=== PATIENT | female | born 1960 | race Caucasian/White ===

== ENCOUNTER 2021-01-27 00:59 | Emergency (ER) | payer OTHER, SELFPAY ==
[2021-01-27] VITALS (21 sets, daily range): BP systolic 115–132; BP diastolic 71–102; PULSE 81–96; RESP 20–27; TEMP 36.4–36.9; O2SAT 91–95
--- NOTE | ~2021-01-27 | XR_ITS ---
XR chest 2V DATE: 01/27/2021 01:25 INDICATION: Shortness of breath, wheezing, cough TECHNIQUE: PA and lateral views COMPARISON: None FINDINGS: There is suggestion of bilateral perihilar and lower lung infiltrates and/or atelectasis. Mild elevation of the right leaf of the diaphragm. Heart size appears normal. Is aortic arch calcification. Probable moderate hiatal hernia. Diffuse osteopenia. IMPRESSION: Probable bilateral perihilar and lower lung zone infiltrates and/atelectasis; continued r adiographic follow-up is recommended Reviewed, dictated and finalized at location A. IMPRESSION: Probable bilateral perihilar and lower lung zone infiltrates and/at electasis; continued radiographic follow-up is recommended
--- NOTE | 2021-01-27 01:06 | ECG_ITS ---
Measurements Intervals [place] Rate: 93 P: 1 LA: 146 QRS: -14 QRSD: 89 T: 1 QT: 328 QTc: 409 Interpretive Statements SINUS RHYTHM LOW QRS VOLTAGE IN PRECORDIAL LEADS BORDERLINE R WAVE PROGRESSION, ANTERIOR LEADS INFERIOR INFARCT, AGE INDETERMINATE BASELINE WANDER- II, III, AVR, AVF, V1-V3 ABNORMAL ECG Electronically Signed On 01-27-2021 6:44:32 CDT by Miguel Angel Hauser D.O.
[2021-01-27 01:35] LABS: Basophils Percent Auto 0.4 % (0.2-1.2); Eosinophils Absolute Auto 0.1 K/mm3 (0-0.3); Eosinophils Percent Auto 0.7 % (0-4.4); Hematocrit 39.4 % (37.0-47.0); Hemoglobin 12.4 g/dL (12.0-15.0); Immature Granulocyte Absolute 0.02 K/mm3 (0.00-0.031); Immature Granulocyte Percent A 0.2 % (0-0.5); Lymphocytes Absolute Auto 1.57 K/mm3 (0.9-3.2); Mean Corpuscular HGB Conc 31.5 g/dl (32-36); Mean Corpuscular Hemoglobin 27.2 pg (26-34); Mean Corpuscular Volume 86.4 fl (80-100); Mean Platelet Volume 9.4 fl (7.4-10.4); Monocytes Absolute Auto 0.5 K/mm3 (0.1-0.6); Monocytes Percent Auto 5.4 % (2.6-8.5); Neutrophils Absolute Auto 6.2 K/mm3 (1.3-6.7); Neutrophils Percent Auto 74.3 % (45.5-73.1); Platelet Count Result 224 k/mm3 (150-375); Red Blood Count 4.56 M/mm3 (4.2-5.4); Red Cell Distribution Width 17.2 % (11.5-14.5); White Blood Count 8.3 K/mm3 (4.5-10.0)
[2021-01-27 01:38] LABS: Anion Gap 11 mmol/L (8-16); Blood Urea Nitrogen 19 mg/dL (7-17); Calcium 9.1 mg/dL (8.4-10.2); Carbon Dioxide 24 mmol/L (22-30); Chloride 104 mmol/L (98-107); Estimated Glomerular Filt Rate 50; Glucose 135 mg/dL (65-110); Potassium 4.1 mmol/L (3.4-5.0); Sodium 139 mmol/L (137-145)
--- NOTE | 2021-01-27 03:36 | ED.SOB ---
HPI - SOB/Dyspnea General Chief Complaint: Shortness of Breath/Dyspnea Stated Complaint: SOB Time Seen by Provider: 01/27/21 02:59 Source: patient and RN notes reviewed Mode of arrival: EMS Limitations: no limitations History of Present Illness HPI Narrative: This is a 60 year old female with history of asthma and DM who presents for evaluation shortness of breath and wheezing. Her symptoms started on Thursday with coughing and wheezing. She has been using her albuterol inhaler. Her inhaler was helping with her shortness of breath until tonight. She states she felt like she could not breath so she called EMS. She was given an albuterol nebulizer in route. She feels better but she still feels short of breath. She denies fever, chest pain, runny nose. 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 Related Data Allergies Allergy/AdvReac Type Severity Reaction Status Date / Time amoxicillin Allergy Unknown Verified 08/22/10 14:45 cromolyn Allergy Unknown Verified 08/22/10 14:45 morphine Allergy Unknown Verified 05/22/15 13:20 Sulfa (Sulfonamide Allergy Unknown Verified 05/22/15 13:21 Antibiotics) Review of Systems Review of Systems: All systems reviewed & are unremarkable except as noted in HPI and below PMFSH Past Medical History Medical History (Updated 01/27/21 @ 05:24 by Belkis Ojeda MD) Asthma Diabetes mellitus Hypertension Surgical History Surgical History (Updated 01/27/21 @ 05:21 by Belkis Ojeda MD) Hx of cholecystectomy Family History Family History (Updated 02/01/16 @ 23:19 by DOCTOR UNKNOWN) Mother Hypertension Family history of diabetes mellitus in first degree relative Father Acute myocardial infarction Other Diabetes mellitus Family history of coronary artery disease Social History Social History Smoking status: Never smoker Alcohol intake: never Exam Const: General: no acute distress and alert Nutritional Appearance: obese Orientation/consciousness: patient oriented x3 Eyes: EOM: EOMs intact bilaterally Resp: Effort & Inspection: normal respiratory effort, not labored, no retractions and not tachypneic Auscultation: wheezes expiratory wheezes and posterior Cardio: Rate: regular rate Rhythm: regular rhythm Heart sounds: no murmurs GI: GI Palp: Yes Soft to palpation, No Tenderness to palpation present (GI) and No Guarding due to palpation present (GI) Auscultation: normal bowel sounds Neuro: General: patient oriented x3 and moves all extremities Course Reevaluation(s) Reevaluation #1: PAtient states she feels better. Her lungs are clear now. She was able to ambulate without sob and maintain oxygen saturation 94% . I discussed discharge plan. she feels comfortable with discharge. She will be swabbed for covid. She does report recent contact with family with covid Date: 01/27/21 Time: 05:22 Vital Signs Vital signs: Vital Signs Temperature 97.5 F L 01/27/21 00:59 Pulse Rate 96 01/27/21 00:59 Respiratory Rate 24 H 01/27/21 00:59 Blood Pressure 127/76 01/27/21 00:59 Pulse Oximetry 94 01/27/21 00:59 Temperature 98.4 F 01/27/21 05:36 Pulse Rate 81 01/27/21 05:36 Respiratory Rate 20 01/27/21 05:36 Blood Pressure 115/71 01/27/21 05:36 Pulse Oximetry 94 01/27/21 05:36 MDM - SOB/Dyspnea Lab Data Attestation: I reviewed the patient's lab results. Result diagrams: 01/27/21 01:17 01/27/21 01:17 Labs: Lab Results 01/27/21 01/27/21 01/27/21 Range/Units 01:17 01:17 04:05 WBC 8.3 (4.5-10.0) K/mm3 RBC 4.56 (4.2-5.4) M/mm3 Hgb 12.4 (12.0-15.0) g/dL Hct 39.4 (37.0-47.0) % MCV 86.4 (80-100) fl MCH 27.2 (26-34) pg MCHC 31.5 L (32-36) g/dl RDW 17.2 H (11.5-14.5) % Plt Count 224 (150-375) k/mm3 MPV 9.4 (7.4-10.4) fl Immature Gran % (Auto) 0.2 (0-0.5) % Neut % (Auto) 74.3 H (45.5-73.1) % Lymph % (Au
[2021-01-27] MEDS: predniSONE 20 MG TABLET 60 MG PO (03:54)
[2021-01-27] MEDS: IPRATROPIUM BR 0.02% INH SOLN 0.5 MG/2.5 ML VIAL INHALATION (04:07)
[2021-01-27] MEDS: ALBUTEROL SULFATE NEB 2.5 MG/0.5 ML INH 5 MG INHALATION (04:07)
[2021-01-27 04:19] LABS: Alveolar/Arterial O2 Gradient 38.2 mmHg; Base Excess ABG 0.2 mEq/l (+/-2.0); Carboxyhemoglobin 0.7 % THb (0-2.0); Fractional Inspired Oxygen 21 %; HCO3 ABG 24.5 mEq/l (22.0-26.0); Methemoglobin ABG 0.4 %THb (0-1.5); Oxygen Content ABG 17.7 %vol (16.0-22.0); Oxygen Saturation ABG 93.3 % (95.0-100.0); Oxyhemoglobin 92.4 % THb (90.0-100.0); PCO2 ABG 38.6 mmHg (35.0-45.0); PO2 ABG 65.3 mmHg (80.0-100.0); PO2 FiO2 Ratio Arterial Blood 3.11 %; Reduced Hemoglobin 6.5 %THb (0-5.0); Total Hemoglobin 13.6 g/dL (12.0-18.0); pH ABG 7.421 (7.350-7.450)
[2021-01-27 04:21] LABS: Modified Allen's Test Pass; Site Drawn RIGHT RADIAL
[2021-01-27] MEDS: AZITHROMYCIN 250 MG TABLET 500 MG PO (05:30)
[2021-01-29 15:38] LABS: SARS-CoV-2 RNA PCR Positive
== END 2021-01-27 05:49 | disposition home or self-care (01) ==
PROVIDERS: Emergency Provider General Practice
DX: U07.1 COVID-19 (principal); J45.901 Unspecified asthma with (acute) exacerbation; E11.9 Type 2 diabetes mellitus without complications; I10 Essential (primary) hypertension; R94.31 Abnormal electrocardiogram [ECG] [EKG]; R91.8 Other nonspecific abnormal finding of lung field
CPT/HCPCS: 36415; 36600; 71046; 80048; 82375; 82805; 83050; 85025; 93005; 99284; A9270; C9803; J7512; U0003; U0005

== ENCOUNTER 2023-09-15 05:18 | Emergency (ER) | payer OTHER, SELFPAY ==
--- NOTE | ~2023-09-15 | CT_ITS ---
EXAMINATION: CTA chest PE protocol DATE: 09/15/2023 07:11 INDICATION: Shortness of breath TECHNIQUE: Computed tomography (CT) pulmonary angiogram of the chest was performed with 100 mL Omnipa que-350 intravenous contrast. Additional 3D reconstructions utilizing coronal maximum intensity proje ction (MIP) were performed. Automated exposure control and iterative reconstruction technique were em ployed. The dose-length product was 986.72 mGy-cm. COMPARISON: None FINDINGS: No pulmonary embolism. Bands of discoid atelectasis/scarring at the right middle and lower lobes. Ind eterminate 7 mm nodule at the right apex. No pneumonia, pulmonary edema or pleural effusion. Heart si ze is normal. No pericardial effusion. Thoracic aorta is normal in caliber with no dissection. Small to moderate-sized sliding-type hiatal hernia. No pathologically enlarged thoracic lymphadenopathy. Ch olecystectomy clips at gallbladder fossa. 5.5 cm centrally low density mass with peripheral arterial phase puddling of contrast in the lateral segment of the left hepatic lobe most suggestive of a heman gioma. Moderate thoracic spondylosis. T6 and T10 hemangiomas. IMPRESSION: 1. Discoid atelectasis in the right middle and lower lobes. No pulmonary embolism or other acute card iopulmonary disease. 2. Small to moderate-sized sliding-type hiatal hernia. 3. 5.5 cm mass in the left hepatic lobe with enhancement pattern on single phase most suggestive of a hemangioma. Consider follow-up pre and postcontrast MRI or CT for more definitive confirmation. Reviewed, dictated and finalized at location L. IMPRESSION: 1. Discoid atelectasis in the right middle and lower lobes. No pulmonary emboli sm or other acute cardiopulmonary disease. 2. Small to moderate-sized sliding-type hiatal hernia. 3. 5.5 cm mass in the left hepatic lobe with enhancement pattern on single phas e most suggestive of a hemangioma. Consider follow-up pre and postcontrast MRI or CT for more definitive confirmation.
--- NOTE | ~2023-09-15 | XR_ITS ---
Portable chest x-ray Comparison: 01/27/2021 Clinical History: Shortness of breath Findings: There is extensive haziness of the left lung base and left perihilar region. Right lung es sentially clear. Cardiomediastinal silhouette is stable. Bones and soft tissues are unremarkable. Impression: Studies of hazy airspace consolidation left lung base and left perihilar region. Correlate for pneumo davey versus asymmetric pulmonary edema, less likely layering effusion. Consider chest CT to further ev aluate. Reviewed, dictated and finalized at location M. Impression: Studies of hazy airspace consolidation left lung base and left perihilar region . Correlate for pneumonia versus asymmetric pulmonary edema, less likely layeri ng effusion. Consider chest CT to further evaluate.
--- NOTE | 2023-09-15 05:26 | ECG_ITS ---
Measurements Intervals [place] Rate: 76 P: 11 CO: 151 QRS: -14 QRSD: 82 T: -1 QT: 346 QTc: 390 Interpretive Statements SINUS RHYTHM DELAYED PRECORDIAL R/S TRANSITION LOW QRS VOLTAGE IN PRECORDIAL LEADS INFERIOR INFARCT, AGE INDETERMINATE BASELINE ARTIFACT- I, II, III, AVR, AVL, AVF, V1-V6 ABNORMAL ECG COMPARED TO ECG 01/27/2021 01:08:07 NO SIGNIFICANT CHANGES Electronically Signed On 09-15-2023 8:21:39 CDT by Miguel Angel Hauser D.O.
--- NOTE | 2023-09-15 05:30 | ED.GENADULT ---
HPI - General Adult General Chief complaint: Shortness of Breath/Dyspnea <Jeremías Ivy MD - Last Filed: 09/15/23 06:22> Stated complaint: DIFFICULTY IN BREATHING <Jeremías Ivy MD - Last Filed: 09/15/23 06:22> Time Seen by Provider: 09/15/23 05:26 <Jeremías Ivy MD - Last Filed: 09/15/23 06:22> History of Present Illness HPI narrative: patient is a 63-year-old female who presents emergency department with chief complaint of shortness of breath. Patient reports that she has history of reactive airway disease reports that she uses a nebulizer and also uses CPAP at night patient reports that she recently had some skin grafting done at [facility] and reports that she started having shortness of breath this evening and called EMS. The patient was found to be moderately tachypneic when EMS arrived but was not hypoxic. Patient denies fever does report that she was exposed to RSV recently <Jeremías Ivy MD - Last Filed: 09/15/23 06:22> Related Data Allergies/adverse reactions: Allergies Allergy/AdvReac Type Severity Reaction Status Date / Time amoxicillin Allergy Unknown Verified 08/22/10 14:45 cromolyn Allergy Unknown Verified 08/22/10 14:45 morphine Allergy Unknown Verified 05/22/15 13:20 Sulfa (Sulfonamide Allergy Unknown Verified 05/22/15 13:21 Antibiotics) <Jeremías Ivy MD - Last Filed: 09/15/23 06:22> Review of Systems Review of Systems: A 10 system review of systems was completed on the patient and is negative except for what is stated in the HPI. Nursing and ancillary documentation was reviewed. <Jeremías Ivy MD - Last Filed: 09/15/23 06:22> [facility] Past Medical History Medical History: Medical History Asthma Diabetes mellitus Hypertension <Jeremías Ivy MD - Last Filed: 09/15/23 06:22> Surgical History Surgical History: Surgical History Hx of cholecystectomy <Jeremías Ivy MD - Last Filed: 09/15/23 06:22> Family History Family History: Family History Mother Hypertension Family history of diabetes mellitus in first degree relative Father Acute myocardial infarction Other Diabetes mellitus Family history of coronary artery disease <Jeremías Ivy MD - Last Filed: 09/15/23 06:22> Social History Social History: Social History Smoking status: Never smoker Alcohol intake: never <Jeremías Ivy MD - Last Filed: 09/15/23 06:22> Exam Narrative: GENERAL: Well-appearing, well-nourished, and in no acute distress. HEAD: Normocephalic, atraumatic. EYES: PERRLA and EOMI. ENT: Nares clear, no rhinorrhea or epistaxis. Mucous membranes moist. NECK: Supple. CHEST: Clear to auscultation. mild respiratory distress. HEART: Regular rate and rhythm. No murmur heard. Normal peripheral pulses. ABDOMEN: Soft, nontender, nondistended, normal active bowel sounds. EXTREMITIES: Normal range of motion. No edema. SKIN: Warm, dry, no rash. NEURO: No focal deficits. Alert and oriented x3. PSYCH: Normal mood and affect. <Jeremías Ivy MD - Last Filed: 09/15/23 06:22> Course Reevaluation(s) Reevaluation #1: Patient signed out to me pending CT PE with plan for discharge if normal. EKG showing NSR at 76, IL 151, normal QRS, QTC. Normal axis. No obvious ischemia. Chest x-ray per my interpretation shows some hazy opacities left lung, I did review the CT PE which does not shown obvious pneumonia however given her comorbidities I will start her on azithromycin, she has normal QTC on EKG. Otherwise no abnormality on CT PE. . I did re-evaluate the patient, she is resting comfortably,
[2023-09-15 05:40] VITALS: BP 157/77; PULSE 73; PULSE 74; RESP 27; RESP 28; TEMP 36.6; O2SAT 99
[2023-09-15 05:58] LABS: Basophils Percent Auto 0.5 % (0.2-1.2); Eosinophils Absolute Auto 0.1 K/mm3 (0-0.3); Eosinophils Percent Auto 1.9 % (0-4.4); Hemoglobin 10.1 g/dL (12.0-15.0); Immature Granulocyte Absolute 0.05 K/mm3 (0.00-0.031); Immature Granulocyte Percent A 0.7 % (0-0.5); Lymphocytes Absolute Auto 2.77 K/mm3 (0.9-3.2); Lymphocytes Percent Auto 36.7 % (18.3-44.2); Mean Corpuscular HGB Conc 28.9 g/dl (32-36); Mean Corpuscular Hemoglobin 26.4 pg (26-34); Mean Corpuscular Volume 91.6 fl (80-100); Mean Platelet Volume 9.5 fl (7.4-10.4); Monocytes Absolute Auto 0.6 K/mm3 (0.1-0.6); Neutrophils Absolute Auto 3.9 K/mm3 (1.3-6.7); Neutrophils Percent Auto 52.2 % (45.5-73.1); Platelet Count Result 316 k/mm3 (150-375); Red Blood Count 3.82 M/mm3 (4.2-5.4); Red Cell Distribution Width 16.7 % (11.5-14.5); White Blood Count 7.5 K/mm3 (4.5-10.0)
[2023-09-15 06:11] LABS: Partial Thromboplastin Time 40.4 SECONDS (22.3-36.8)
[2023-09-15 06:18] LABS: Lactic Acid Reflex 2.2 mmol/L (0.7-2.0)
[2023-09-15 06:19] LABS: Alanine Aminotransferase 14 U/L (6-35); Albumin Level 4.1 g/dL (3.5-5.1); Alkaline Phosphatase 61 U/L (38-126); Anion Gap 10 mmol/L (8-16); Aspartate Amino Transferase 24 U/L (14-36); Bilirubin,Total 0.4 mg/dL (0.2-1.3); Blood Urea Nitrogen 32 mg/dL (7-17); Calcium 9.2 mg/dL (8.4-10.2); Carbon Dioxide 27 mmol/L (22-30); Chloride 105 mmol/L (98-107); Estimated CRCL calculation 80 ml/min; Estimated Glomerular Filt Rate 56; Glucose 130 mg/dL (65-110); Potassium 4.1 mmol/L (3.4-5.0); Sodium 142 mmol/L (137-145)
[2023-09-15 06:24] LABS: Magnesium 1.7 mg/dL (1.6-2.3); Platelet Estimate Adequate (Adequate)
[2023-09-15 06:25] LABS: Anisocytosis 1+ (NORMAL); Schistocytes None Seen (NORMAL); Stomatocytes 1+ (NORMAL)
[2023-09-15 06:34] LABS: Procalcitonin 0.1 ng/mL
[2023-09-15 06:36] LABS: Troponin I < 0.012 ng/mL (0.000-0.034)
[2023-09-15 06:37] LABS: Influenza A QL RT-PCR Negative (Negative); Influenza B QL RT-PCR Negative (Negative); RSV RNA, RT-PCR Negative (Negative); SARS-CoV-2 RNA PCR Negative (Negative)
[2023-09-15 06:41] LABS: NT Pro B Type Natriuretic Pept 663 pg/mL (19.9-100)
[2023-09-15 08:42] VITALS: BP 144/75; PULSE 71; RESP 16; O2SAT 100
[2023-09-15] MEDS: ACETAMINOPHEN 500 MG TABLET 1000 MG PO (08:49)
[2023-09-15 08:56] LABS: Reflex Lactic Acid Yes or No Add Lactic
--- NOTE | 2023-09-15 09:53 | PC.NURSE ---
pt unhappy at discharge, pt angry that she did not receive any steroids. pt also irritated that her discharge papers said she was anemic, though not informed of lab values. pt was able to meet both RN and provider prior to discharge. all questions were answered. pt stated that she would like to complain. pt given info to patient advocate. also informed pt that I would meet with provider and attempt to attain script for steroids. updated pharmacy in chart, spoke to provider. escribed meds to pharmacy called pt to inform of additional dc medications
== END 2023-09-15 09:05 | disposition home or self-care (01) ==
PROVIDERS: Emergency Medicine; Emergency Provider Emergency Medicine
DX: J42 Unspecified chronic bronchitis (principal); D64.9 Anemia, unspecified; Z20.822 Contact with and (suspected) exposure to COVID-19; J45.909 Unspecified asthma, uncomplicated; E11.9 Type 2 diabetes mellitus without complications; I10 Essential (primary) hypertension; Z90.49 Acquired absence of other specified parts of digestive tract; R16.0 Hepatomegaly, not elsewhere classified; K44.9 Diaphragmatic hernia without obstruction or gangrene; R94.31 Abnormal electrocardiogram [ECG] [EKG]
CPT/HCPCS: 36415; 36600; 71045; 71275; 80053; 82805; 83605; 83735; 83880; 84145; 84484; 85025; 85610; 85730; 87040; 87637; 93005; 99284; A9270; Q9967

== ENCOUNTER 2025-01-09 14:10 | Outpatient (CLI) | payer MEDICARE, SELFPAY ==
--- NOTE | ~2025-01-09 | DEXA_ITS ---
Bone Density Report Name: GOLDEN MIRANDA Age: 64 Sex: Female Ethnicity: White Date of : 1960 Indication: postmenopausal; screening for osteoporosis; parental hip fracture; height loss; asthma or emphysema; Referring Provider: MARTHA HANNA Study: Bone densitometry was performed. Exam Date: January 09, 2025 Accession number: [id number] Bone Density: Region BMD T-score Z-score Classification AP Spine(L1-L4) 1.022 -0.2 1.6 Normal Femoral Neck (Left) 0.772 -0.7 0.8 Normal Total Hip (Left) 1.024 0.7 1.9 Normal Femoral Neck (Right) 0.895 0.4 1.9 Normal Total Hip (Right) 1.121 1.5 2.7 Normal Total Hip Mean 1.073 1.1 2.3 Normal World Health Organization criteria for BMD impression classify patients as: Normal (T-score at or above -1.0), Osteopenia (T-score between -1.0 and -2.5), or Osteoporosis (T-score at or below -2.5). 10-year Fracture Risk: FRAX not reported because: All T-scores for Spine Total, Hip Total, Femoral Neck at or above -1.0 Clinical Information Provided by Patient: Parent has had a hip fracture Has used the following medications: Vitamin D, Calcium Has the following medical conditions: Asthma or Emphysema Patient maximum height was 65 Menopause Age: 49 No regular weight bearing exercise Drinks caffeinated beverages Onset of menses at age 8 Number of children 0 Impression: The patient has normal bone mass. The patient has risk factors, including: parental hip fracture. Discussion: BONE DENSITY IS ABOVE THE MINIMUM DESIRABLE LEVEL AT ALL SKELETAL SITES TESTED. This patient?s bone mineral density is above the minimum desirable level (T-score -1.0 or better) at all sites measured. The patient should follow a healthful lifestyle (good nutrition with adequate calcium and vitamin D, and appropriate weight-bearing exercise). Follow-Up: Consider repeating this study in 5 years or sooner if there is some new clinical indication. Reported by: KIA on 01/09/2025 2:39:00 PM. Reviewed, dictated and finalized at location A.
== END 2025-01-09 14:11 | disposition home or self-care (01) ==
LOC: MICIMG 14:11
PROVIDERS: PCP Obstetrics & Gynecology Gynecology; Visit Provider Obstetrics & Gynecology Gynecology
DX: Z13.820 Encounter for screening for osteoporosis (principal); Z78.0 Asymptomatic menopausal state
CPT/HCPCS: 77080

== ENCOUNTER 2025-02-08 16:12 | Emergency (ER) | payer MEDICARE, SELFPAY ==
--- NOTE | 2025-02-08 16:13 | ED_ITS ---
HPI - Female Genitourinary General Chief complaint: Urogenital-Female Stated complaint: UTI Time Seen by Provider: 02/08/25 16:13 Source: patient Mode of arrival: ambulatory Limitations: no limitations History of Present Illness HPI Narrative: Tegan is a 64-year-old female patient presenting to the clinic today with complaints of possible UTI. She reports last night she started having urinary frequency. States she is urinating every half an hour. Has not taken any medications for her symptoms. Denies any burning, urgency, or blood in her urine. Does report some lower back pain. No fevers, chills, body aches, or abdominal pain. Denies any vaginal discharge or odor. Related Data Home Medications ?Medication ?Instructions ?Recorded ?Confirmed ?Last Taken ?Type albuterol sulfate 2.5 mg/3 mL mg 02/08/25 Unknown History (0.083 %) solution for nebulization albuterol sulfate 90 mcg/actuation inhalation 02/08/25 Unknown History aerosol inhaler (Ventolin HFA) dulaglutide 0.75 mg/0.5 mL mg subcut 02/08/25 Unknown History subcutaneous pen injector (Trulicity) dupilumab 300 mg/2 mL subcutaneous mg subcut 02/08/25 Unknown History pen injector (Dupixent) epinephrine 0.3 mg/0.3 mL 02/08/25 Unknown History injection, auto-injector ergocalciferol (vitamin D2) 1,250 02/08/25 Unknown History mcg (50,000 unit) capsule famotidine 40 mg tablet mg 02/08/25 Unknown History fluticasone 500 mcg-salmeterol 50 inhalation 02/08/25 Unknown History mcg/dose blistr powdr for inhalation gabapentin 300 mg capsule mg 02/08/25 Unknown History hydrocodone 5 mg-acetaminophen 325 tablet 02/08/25 Unknown History mg tablet levothyroxine 125 mcg tablet mcg 02/08/25 Unknown History meloxicam 15 mg tablet mg 02/08/25 Unknown History metoprolol succinate 50 mg mg PO 02/08/25 Unknown History tablet,extended release 24 hr pantoprazole 40 mg tablet,delayed mg PO 02/08/25 Unknown History release tiotropium bromide 1.25 inhalation 02/08/25 Unknown History mcg/actuation mist for inhalation (Spiriva Respimat) trazodone 50 mg tablet mg 02/08/25 Unknown History valsartan 160 mg tablet mg 02/08/25 Unknown History Allergies Allergy/AdvReac Type Severity Reaction Status Date / Time amoxicillin Allergy Unknown Nausea and Verified 02/08/25 16:38 Vomiting cromolyn Allergy Unknown Unknown Verified 02/08/25 16:38 morphine Allergy Unknown hives Verified 02/08/25 16:38 Sulfa (Sulfonamide Allergy Unknown Unknown Verified 02/08/25 16:38 Antibiotics) clavulanic acid (From Allergy rash Verified 02/08/25 16:38 Augmentin) [facility] Past Medical History Medical History Asthma Diabetes mellitus Hypertension Surgical History Surgical History Hx of cholecystectomy Family History Family History Mother Hypertension Family history of diabetes mellitus in first degree relative Father Acute myocardial infarction Other Diabetes mellitus Family history of coronary artery disease Social History Social History Smoking status: Never smoker Alcohol intake: never Comments At the time of my signature, I reviewed and agree with the nursing past medical, surgical, social, and family history. There is no relevant family history pertinent to the patient complaint. Exam Narrative: General: Well-developed, morbidly obese, in no apparent distress. Head: Normocephalic, atraumatic. Cardio: Regular rate and rhythm, s1 and s2 normal, no murmur appreciated. Resp: Clear to auscultation bilaterally, no rhonchi, rales, wheezing or rubs. Abdomen: Soft, pliable, bowel sounds present in all quadrants, non-tender to palpation, no organomegly, no CVAT tenderness. Course Course Emergency Course: Portions of this record may have been created with voice recognition software. Level of Care: Express Care Visit Vital Signs Vital signs: Vital Signs Temperature 36.4 C L 02/08/25 16:24 Pulse Rate 69 02/08/25 16:24 Respiratory Rate 16 02/08/25 16:24 Blood Pressure 148/88 H 02/08/25 16:24 Pulse Oximetry 96 02/08/25 16:24 Oxygen Delivery Room Air 02/08/25 16:24 Temperature 36.4 C L 02/08/25 16:24 Pulse Rate 69 02/08/25 16:24 Respiratory Rate 16 02/08/25 16:24 Blood Pressure 148/88 H 02/08/25 16:24 Pulse Oximetry 96 02/08/25 16:24 Oxygen Delivery Room Air 02/08/25 16:24 Vital signs reviewed MDM - Female Genitourinary MDM Narrative Medical decision making narrative: At the time of visit patient is resting comfortably on the exam table. Patient appears to be nontoxic. Complaints of possible UTI. She reports last night she started having urinary frequency. States she is urinating every half an hour. Denies any burning, urgency, or blood in her urine. Does report some lower back pain. No fevers, chills, body aches, or abdominal pain. Denies any vaginal discharge or odor. U/A dip ordered Labs: Urinalysis dip positive for blood, leukocytes, or protein. Urine culture was ordered. Plan: I suspect patient has UTI. Prescription for cephalexin was sent to the pharmacy. Supportive measures were discussed with the patient and they voiced understanding discharge instructions and agrees to treatment plan. Return precautions reviewed Differential Diagnosis Differential diagnosis: Likely urinary tract infection and cystitis Lab Data Labs: Lab Results 02/08/25 Range/Units 16:55 POC Urine Color Dark POC Urine Clarity Cloudy POC Urine pH 5.5 POC Ur Specif [place] 1.030 POC Urine Protein 2+ (Negative) POC Ur Glucose (UA) Negative (Negative) POC Urine Ketones Negative (Negative) POC Urine Blood 3+ (Negative) POC Urine Nitrite Negative (Negative) POC Urine Bilirubin Negative (Negative) POC Urine Urobilinogen 0.2 POC U Leukocyte Esteras 1+ (Negative) Discharge Plan Discharge Clinical Impression: Urinary tract infection Qualifiers: Urinary tract infection type: acute cystitis Hematuria presence: with hematuria Qualified Code(s): N30.01 - Acute cystitis with hematuria Patient Disposition: Home Condition: Stable Instructions: Antibiotic Form, Urinary Tract Infection in Older Adults (ED) Additional Instructions: Urine shows leukocytes, blood, and protein. We will send urine for culture. Take cephalexin as prescribed Increase fluids and stay well hydrated Wipe front to back. May use wet wipes. Avoid tub baths If sexually active- pee before and after intercourse. Wear cotton panties Avoid tight clothing up against the genitals Follow up with your PCP in 1 week if symptoms persist. Patient Language: Czech Prescriptions: New cephalexin 500 mg capsule 500 mg PO Q12H 7 Days Qty: 14 0RF No Action albuterol sulfate 2.5 mg /3 mL (0.083 %) solution for nebulization trazodone 50 mg tablet metoprolol succinate 50 mg tablet extended release 24 hr PO hydrocodone-acetaminophen 5-325 mg tablet meloxicam 15 mg tablet famotidine 40 mg tablet pantoprazole 40 mg tablet,delayed release (DR/EC) PO levothyroxine 125 mcg tablet fluticasone propion-salmeterol 500-50 mcg/dose blister with device INHALATION gabapentin 300 mg capsule ergocalciferol (vitamin D2) 1,250 mcg (50,000 unit) capsule epinephrine 0.3 mg/0.3 mL auto-injector albuterol sulfate [Ventolin HFA] 90 mcg/actuation HFA aerosol inhaler INHALATION valsartan 160 mg tablet Trulicity 0.75 mg/0.5 mL pen injector SUBCUT Spiriva Respimat 1.25 mcg/actuation mist INHALATION Dupixent Pen 300 mg/2 mL pen injector SUBCUT ipratropium-albuterol 0.5 mg-3 mg(2.5 mg base)/3 mL solution for nebulization 3 ml inhalation Q6H PRN (Reason: shortness of breath or wheezing) Qty: 90 0RF Follow-up/Referrals: Rosy uGtiérrez MD [Primary Care Provider] - Time of Disposition: 16:57 Quality NIHSS Nursing Documentation ED NIHSS nursing documentation: reviewed/agree
[2025-02-08 16:24] VITALS: BP 148/88; PULSE 69; RESP 16; TEMP 36.4; O2SAT 96
[2025-02-08 17:03] LABS: EDUAAPPEAR Cloudy; EDUABILI Negative (Negative); EDUABLOOD 3+ (Negative); EDUACOLOR1 Dark; EDUAGLUCOSE Negative (Negative); EDUAKETONE Negative (Negative); EDUALEUKO 1+ (Negative); EDUANITRATE Negative (Negative); EDUAPH 5.5; EDUAPROTEIN 2+ (Negative); EDUASPGRAVITY 1.030; EDUAUROBILI 0.2
== END 2025-02-08 17:06 | disposition home or self-care (01) ==
PROVIDERS: Emergency Provider Nurse Practitioner Family; PCP Obstetrics & Gynecology Gynecology
DX: N30.01 Acute cystitis with hematuria (principal); I10 Essential (primary) hypertension; E11.9 Type 2 diabetes mellitus without complications; Z79.85 Long-term (current) use of injectable non-insulin antidiabetic drugs; J45.909 Unspecified asthma, uncomplicated
CPT/HCPCS: 81003; 87086; 99213; G0463